=== PATIENT | female | born 1975 | race Caucasian/White ===

== ENCOUNTER 2021-09-14 13:59 | Inpatient (IN) ==
[2021-09-14] MEDS ORDERED: HYDROmorphone 2 MG/1 ML VIAL IV STA (14:36)
[2021-09-14] MEDS ORDERED: KETOROLAC 30 MG/1 ML VIAL IV STA (14:36)
[2021-09-14] MEDS ORDERED: SODIUM CHLORIDE 0.9% 1,000 ML IV STA (14:36)
[2021-09-14] MEDS ORDERED: ONDANSETRON 4 MG/2 ML VIAL IV STA (14:36)
[2021-09-14] MEDS ORDERED: PROMETHAZINE 25 MG/1 ML VIAL ONE (15:00)
[2021-09-14 15:06] LABS: Basophils % 0.5 % (0.0-0.8); Eosinophils # 0.2 10*3/uL (0.0-0.87); Eosinophils % 2.4 % (0.00-10.9); Hemoglobin 12.3 GM/DL (12.0-16.0); Immature Granulocytes % 0.4 %; Immature Granulocytes Absolute 0.03 #; Lymphocytes # 1.7 10*3/uL (1.4-4.0); Lymphocytes % 21.1 % (21.3-54.2); Mean Corpuscular HGB Conc 30.8 GM/DL (32-36); Mean Corpuscular Volume 87.9 FL (87-102); Monocytes % 5.9 % (1.7-12.7); Neutrophils % 69.7 % (38.7-73.9); Platelet Count 224 T/CUMM (130-400); Red Blood Count 4.55 MC/CUMM (3.8-5.5); Red Cell Distribution Width 17.2 % (9.3-17.3); White Blood Count 7.8 T/CUMM (4-12)
[2021-09-14] MEDS ORDERED: PROMETHAZINE 25 MG/1 ML VIAL IM STA (15:27)
[2021-09-14 15:34] LABS: Alanine Aminotransferase 13 U/L (13-56); Albumin 3.5 G/DL (3.4-5.0); Alkaline Phosphatase 80 U/L (45-117); Aspartate Amino Transferase 11 U/L (0-37); Bilirubin,Total < 0.39 MG/DL (0.20-1.00); Blood Urea Nitrogen 16 MG/DL (7-18); Calcium 8.6 MG/DL (8.5-10.1); Carbon Dioxide 24 MMOL/L (21-32); Estimated Glom Filtration Rate 85 ML/MIN; Glucose 104 MG/DL (74-106); Osmolality,Calculated 279.4 MOS/KG (273-304); Sodium 140 MMOL/L (136-145); Total Protein 6.9 G/DL (6.4-8.2)
[2021-09-14 16:36] LABS: Bilirubin,Urine Negative (Negative); Blood, Urine Negative (Negative); Glucose,Urine (UA) Negative (Negative); Ketones,Urine Negative (Negative); Mucus,Urine Moderate /LPF (Occasional); Nitrite,Urine Negative (Negative); Protein,Urine Negative; RBC,Urine 4 /HPF (0-4); Squamous Epithelial Cell,Urine Few /HPF (0-10); Urine Appearance CLEAR (Clear); Urine Color Yellow (Yellow); Urine Urobilinogen < 2.0 EU/DL (0.2-1.0)
[2021-09-14 16:40] LABS: Urine Specific Gravity > 1.067 (1.001-1.035)
[2021-09-14] MEDS ORDERED: ALUM/MAG/SIMETH/LIDO VISC 1:1 30 ML BOTTLE PO STA (16:45)
[2021-09-14] MEDS ORDERED: DICYCLOMINE 20 MG/2 ML AMP IM ONE (17:03)
[2021-09-14] MEDS ORDERED: ONDANSETRON 4 MG/2 ML VIAL IV PRN (17:56)
[2021-09-14] MEDS ORDERED: GLUCAGON 1 MG VIAL IM PRN (17:56)
[2021-09-14] MEDS ORDERED: DEXTROSE 50% 25 GM/50 ML SYRINGE IV PRN (18:04)
[2021-09-14] MEDS: PANTOPRAZOLE 40 MG VIAL IV SCH (21:01)
[2021-09-14] MEDS: DEXTROSE 5% NACL 0.45% 1,000 ML IV SCH (21:01)
[2021-09-14] MEDS: MORPHINE 2 MG/1 ML SYRINGE IV PRN (21:03)
[2021-09-14] MEDS: ZALEPLON 5 MG CAPSULE PO PRN (22:39)
[2021-09-14] MEDS: PROMETHAZINE INJ 12.5 MG in SODIUM CHLORIDE 0.9% 50 ML IV PRN (22:41)
[2021-09-15] MEDS: MORPHINE 2 MG/1 ML SYRINGE IV PRN ×6 (01:15→21:46)
[2021-09-15] MEDS: DEXTROSE 5% NACL 0.45% 1,000 ML IV SCH ×2 (05:25→11:09)
[2021-09-15] MEDS: PROMETHAZINE INJ 12.5 MG in SODIUM CHLORIDE 0.9% 50 ML IV PRN ×2 (05:26→14:30)
[2021-09-15] MEDS: PANTOPRAZOLE 40 MG VIAL IV SCH ×2 (08:18→21:45)
[2021-09-15 13:11] LABS: Basophils % 0.6 % (0.0-0.8); Eosinophils # 0.2 10*3/uL (0.0-0.87); Eosinophils % 4.5 % (0.00-10.9); Hematocrit 38.6 VOL% (35.7-47.0); Hemoglobin 11.8 GM/DL (12.0-16.0); Immature Granulocytes % 0.2 %; Immature Granulocytes Absolute 0.01 #; Lymphocytes # 1.7 10*3/uL (1.4-4.0); Lymphocytes % 34.1 % (21.3-54.2); Mean Corpuscular HGB Conc 30.6 GM/DL (32-36); Mean Corpuscular Volume 87.9 FL (87-102); Mean Platelet Volume 11.8 FL (9.6-12.0); Monocytes % 6.7 % (1.7-12.7); Neutrophils % 53.9 % (38.7-73.9); Platelet Count 168 T/CUMM (130-400); Red Blood Count 4.39 MC/CUMM (3.8-5.5); Red Cell Distribution Width 17.4 % (9.3-17.3); White Blood Count 5.1 T/CUMM (4-12)
[2021-09-15 13:19] LABS: Calcium 7.9 MG/DL (8.5-10.1); Osmolality,Calculated 279.3 MOS/KG (273-304); Potassium 3.9 MMOL/L (3.5-5.1); Thyroid Stimulating Hormone 2.58 uIU/ml (0.358-3.74); VLDL Cholesterol 21.8 MG/DL
[2021-09-15] MEDS: ZALEPLON 5 MG CAPSULE PO PRN (21:52)
[2021-09-16] MEDS: DEXTROSE 5% NACL 0.45% 1,000 ML IV SCH ×4 (01:35→19:09)
[2021-09-16] MEDS: PROMETHAZINE INJ 12.5 MG in SODIUM CHLORIDE 0.9% 50 ML IV PRN ×3 (02:01→19:32)
[2021-09-16] MEDS: MORPHINE 2 MG/1 ML SYRINGE IV PRN ×6 (02:01→23:46)
[2021-09-16 06:01] LABS: Calcium 7.9 MG/DL (8.5-10.1); Osmolality,Calculated 274.7 MOS/KG (273-304); Potassium 3.9 MMOL/L (3.5-5.1)
[2021-09-16 06:14] LABS: Basophils % 0.5 % (0.0-0.8); Eosinophils # 0.3 10*3/uL (0.0-0.87); Eosinophils % 4.4 % (0.00-10.9); Hematocrit 36.2 VOL% (35.7-47.0); Immature Granulocytes % 0.3 %; Immature Granulocytes Absolute 0.02 #; Lymphocytes # 1.9 10*3/uL (1.4-4.0); Lymphocytes % 32.8 % (21.3-54.2); Mean Corpuscular HGB Conc 30.4 GM/DL (32-36); Mean Corpuscular Volume 89.6 FL (87-102); Mean Platelet Volume 10.8 FL (9.6-12.0); Monocytes % 8.1 % (1.7-12.7); Neutrophils % 53.9 % (38.7-73.9); Platelet Count 178 T/CUMM (130-400); Red Blood Count 4.04 MC/CUMM (3.8-5.5); Red Cell Distribution Width 17.7 % (9.3-17.3); White Blood Count 5.9 T/CUMM (4-12)
[2021-09-16] MEDS: PANTOPRAZOLE 40 MG VIAL IV SCH ×2 (08:52→21:28)
[2021-09-16] MEDS ORDERED: ALUM/MAG/SIMETH/LIDO VISC 1:1 30 ML BOTTLE PO ONE (16:43)
[2021-09-16] MEDS: ZALEPLON 5 MG CAPSULE PO PRN (21:28)
[2021-09-17] MEDS: MORPHINE 2 MG/1 ML SYRINGE IV PRN ×3 (03:48→12:27)
[2021-09-17] MEDS: DEXTROSE 5% NACL 0.45% 1,000 ML IV SCH ×2 (03:50→14:14)
[2021-09-17] MEDS: PROMETHAZINE INJ 12.5 MG in SODIUM CHLORIDE 0.9% 50 ML IV PRN (03:51)
[2021-09-17 05:53] LABS: Calcium 7.7 MG/DL (8.5-10.1); Osmolality,Calculated 275.7 MOS/KG (273-304)
[2021-09-17] MEDS: PANTOPRAZOLE 40 MG VIAL IV SCH (08:12)
[2021-09-17 08:13] LABS: Basophils % 0.5 % (0.0-0.8); Eosinophils # 0.2 10*3/uL (0.0-0.87); Eosinophils % 3.6 % (0.00-10.9); Hematocrit 34.4 VOL% (35.7-47.0); Hemoglobin 10.6 GM/DL (12.0-16.0); Immature Granulocytes % 0.3 %; Immature Granulocytes Absolute 0.02 #; Lymphocytes # 1.6 10*3/uL (1.4-4.0); Mean Corpuscular HGB Conc 30.8 GM/DL (32-36); Mean Corpuscular Volume 90.5 FL (87-102); Mean Platelet Volume 11.7 FL (9.6-12.0); Neutrophils % 61.6 % (38.7-73.9); Platelet Count 156 T/CUMM (130-400); Red Cell Distribution Width 17.6 % (9.3-17.3)
[2021-09-17] MEDS ORDERED: LACTATED RINGERS 1,000 ML IV SCH (08:30)
[2021-09-17] MEDS ORDERED: LIDOCAINE 2% 5 ML VIAL ONE (09:44)
[2021-09-17] MEDS ORDERED: propofoL 200 MG/20 ML VIAL IV ONE (09:44)
[2021-09-17 12:14] VITALS: BP 127/64
[2021-09-17] MEDS ORDERED: PANTOPRAZOLE 40 MG TABLET PO SCH (19:00)
== END 2021-09-17 14:50 | disposition home or self-care (01) | DRG 392 ==
LOC: N.ED 13:59 → N.5E 13:59
PROVIDERS: ADMIT Internal Medicine; ATTEND Internal Medicine